=== PATIENT | female | born 1990 ===

== ENCOUNTER 2023-07-07 09:50 | Outpatient (CLI) | payer OTHER | END 2023-07-07 10:32 | disposition home or self-care (01) | LOC: PRENATAL 09:50 | PROVIDERS: ATTEND Obstetrics & Gynecology Maternal & Fetal Medicine | DX: O26.849 Uterine size-date discrepancy, unspecified trimester (principal); O34.219 Maternal care for unspecified type scar from previous cesarean delivery; Z3A.28 28 weeks gestation of pregnancy ==